=== PATIENT | female | born 1995 | race Caucasian/White ===

== ENCOUNTER 2016-09-12 14:08 | Emergency (ER) | payer OTHER ==
[2016-09-12 14:14] VITALS: BP 113/54; PULSE 59; TEMP 97.9; BMI 18.5
[2016-09-12] MEDS ORDERED: IBUPROFEN 400 MG TABLET (FP) PO ONE ×2 (15:06→15:10)
--- NOTE | 2016-09-12 15:14 | PDOC ---
History of Present Illness - General Chief Complaint: Vaginal Sxs Stated Complaint: LUMPS ON LOWER PELVIC REGION Time Seen by Provider: 09/12/16 14:23 History Source: Patient - History of Present Illness Timing/Duration: reports: getting worse Quality: reports: aching Abdominal Pain Onset Location: reports: other (groin) Past History - Past Medical History Allergies/Adverse Reactions: Allergies Allergy/AdvReac Type Severity Reaction Status Date / Time No Known Allergies Allergy Verified 09/12/16 14:14 Home Medications: Ambulatory Orders Doxycycline Hyclate 100 mg PO BID #28 capsule 09/12/16 Ibuprofen [Motrin -] 800 mg PO Q6H #30 tablet 09/12/16 Other medical history: NONE - Immunization History Immunization Up to Date: Yes - Psycho/Social/Smoking Cessation Hx Suicidal Ideation: No Smoking Status: No Smoking History: Current every day smoker Number of Cigarettes Smoked Daily: 4 Information on smoking cessation initiated: No Hx Alcohol Use: No Drug/Substance Use Hx: No Substance Use Type: None Review of Systems - Review of Systems Constitutional: No: Chills, Fever ABD/GI: No: Diarrhea, Nausea, Vomiting, Abdominal cramping : No: Burning, Dysuria, Frequency, Flank Pain, Hematuria, Pain, Lesions Musculoskeletal: No: Back Pain *Physical Exam - Vital Signs Last Vital Signs Temp Pulse Resp BP Pulse Ox 97.9 F 59 L 107 H 113/54 99 09/12/16 14:11 09/12/16 14:11 09/12/16 14:11 09/12/16 14:11 09/12/16 14:11 - Physical Exam General Appearance: Yes: Appropriately Dressed. No: Apparent Distress HEENT: positive: EOMI, Normal Voice. negative: Scleral Icterus (R), Scleral Icterus (L) Neck: positive: Supple Respiratory/Chest: negative: Respiratory Distress Female Pelvic Exam: positive: normal external exam, adnexal tenderness (minimal R adnexal tenderness). negative: CMT, discharge, lesions Gastrointestinal/Abdominal: positive: Normal Bowel Sounds, Soft. negative: Tender, Distended, Guarding Rectal Exam: positive: normal exam Lymphatic: positive: Adenopathy (enlarged tender lymphnodes to b/l inguinal area ) Musculoskeletal: negative: CVA Tenderness Extremity: positive: Normal Inspection Integumentary: positive: Dry, Warm Neurologic: positive: Fully Oriented, Alert, Normal Mood/Affect ED Treatment Course - LABORATORY CBC & Chemistry Diagram: 09/12/16 15:03 - RADIOLOGY Radiology Studies Ordered: Category Date Time Status PELVIS(OTHER) US [US] Stat Ultrasound 09/12/16 15:00 Ordered TRANSVAGINAL US PREG [US] Stat Ultrasound 09/12/16 15:00 Ordered Medical Decision Making - Medical Decision Making 09/12/16 15:10 21 yo F, no sig hx, sexually active w/ longtime male partner, here w/ pain and swelling to b/l inguinal area x 5 days. States sxs have gotten worse and exacerbated by walking. Also c/o ?decreased urinary output x 2 weeks but denies dysuria, hematuria, flank pain, abd pain, n/v/f/c. No vaginal discharge or lesions and denies h/o STDs See exam B/l inguinal lymphadenopathy Unclear source at this time No vag discharge or genital lesions No h/o STDs or HIV No rectal complaints No LE pain/skin changes Exam remarkable for minimal R adnexal tenderness and b/l enlarged tender inguinal lymphnodes -will r/o STDs including HIV and get US r/o acute pathology, i.e TOA, etc, ?PID , uti less likely as not known to cause lymphadenopathy 09/12/16 15:17 09/12/16 16:24 09/12/16 16:57 Labs including HIV and ultrasound negative, RPR and GC/Chlam pending. Case discussed with Dr. Jones in main ED, who agrees to treat for possible PID. Patient to follow-up with culture results and to return for worsening of symptoms *DC/Admit/Observation/Transfer Diagnosis at time of Disposition: Pelvic pain, Inguinal lymphadenopathy - Discharge Dispostion Disposition: HOME Condition at time of disposition: Improved - Prescriptions Prescriptions: Doxycycline Hyclate 100 mg PO BID #28 capsule Ibuprofen [Motrin -] 800 mg PO Q6H #30 tablet - Patient Instructions Printed Discharge Instructions: Pelvic Inflammatory Disease Additional Instructions: Take medications as directed and call [phone] for results Return to ED for worsening of symptoms
[2016-09-12 15:15] LABS: BASOPHIL 0.4 % (0-2.0); EOSINOPHIL 1.3 % (0-4.5); MCHC 33.6 g/dl (32.0-36.0); MEAN PLT VOLUME 9.2 fl (7.5-11.1); NEUTROPHILS 72.1 % (42.8-82.8); PLATELET COUNT 172 K/MM3 (134-434); RDW 13.1 % (11.6-15.6)
[2016-09-12 15:31] LABS: URINE APPEARANCE CLEAR; URINE BILIRUBIN NEGATIVE (NEGATIVE); URINE BLOOD NEGATIVE (NEGATIVE); URINE COLOR YELLOW; URINE GLUCOSE (UA) NEGATIVE (NEGATIVE); URINE KETONE TRACE (NEGATIVE); URINE LEUK ESTERASE NEGATIVE (NEGATIVE); URINE NITRITE NEGATIVE (NEGATIVE); URINE PROTEIN NEGATIVE (NEGATIVE); URINE UROBILINOGEN NEGATIVE E.U./dl (0.2-1.0)
[2016-09-12 16:07] LABS: HIV 1 & 2 AB NEGATIVE; HIV 1 AGp24 NEGATIVE
[2016-09-12] MEDS ORDERED: AZITHROMYCIN 1 GM PACKET ONE (16:57)
[2016-09-12] MEDS ORDERED: AZITHROMYCIN 1 GM PACKET PO ONE (16:57)
[2016-09-15 08:49] LABS: ALBUMIN 3.8 g/dl (3.4-5.0); ANION GAP 7 (8-16); BILIRUBIN,TOTAL 0.3 mg/dL (0.2-1.0); CALCIUM 8.9 mg/dL (8.5-10.1); CO2 27 mmol/L (21-32); CREATININE 0.7 mg/dL (0.55-1.02); GLUCOSE,RANDOM 66 mg/dL (74-106); SGOT/AST 11 U/L (15-37); SGPT/ALT 14 U/L (12-78); TOT PROT 6.6 g/dl (6.4-8.2)
[2016-09-15 08:50] LABS: ALK PHOS 70 U/L (45-117)
== END 2016-09-12 17:17 | disposition home or self-care (01) ==
LOC: JERFT 14:08
DX: R59.0 Localized enlarged lymph nodes (principal); F17.210 Nicotine dependence, cigarettes, uncomplicated
CPT/HCPCS: 36415; 76817-TC; 76856-TC; 80053; 81003; 84703; 85025; 86593; 87389; 99281-25

== ENCOUNTER 2017-09-13 05:09 | Emergency (ER) | payer OTHER ==
[2017-09-13 05:38] VITALS: BMI 17.7
--- NOTE | 2017-09-13 05:50 | PDOC ---
History of Present Illness - General Chief Complaint: Pain Stated Complaint: ABD PAIN - History of Present Illness Initial Comments: Pt is a 22yo sexually active F w/ PMHx of ectopic presents w/ 5 days of lower abdominal pain and vaginal bleeding. She states the pain is sharp, started suddenly, located infrabdominally, bilateral but L worse than R. The pain radiates to the back, not relieved w/ PO pain meds. She presented to her OBGYN (Dr Adams) office, who told her everything was fine. She subsequently was seen at [facility] ER, workup was unremarkable (see below). She was discharged w/ Tylenol, OCP, and antibiotics. The bleeding is unlike her normal period, she is passing numerous clots. Called [facility] ER to obtain workup from 09/09 - Labwork was done, normal CBC/ CMP, H/H 12.2/36.1, Urine negative, UA shows large blood, Transvaginal U/S - no evidence of pelvic abnormality, uterine endometrium appears unremarkable. Called Dr Adams's office - Workup showed bHCG <1, U/S showed normal uterus, endometrium, ovaries, follicles. Cervical and bimanual exam was performed, wnl. Assessment was chronic PID. She has been on doxycycline 100mg BID x 7 days. She was prescribed OCPs to help the abnormal uterine bleeding. Past History - Past Medical History Allergies/Adverse Reactions: Allergies Allergy/AdvReac Type Severity Reaction Status Date / Time No Known Allergies Allergy Verified 09/13/17 05:23 Home Medications: Ambulatory Orders Acetaminophen [Mapap] 325 mg PO DAILY 09/13/17 Docusate Sodium [Colace -] 100 mg PO BID 09/13/17 Ferrous Sulfate [Feosol] 325 mg PO DAILY 09/13/17 Norethindrone-E.estradiol-Iron [Junel Fe 1 mg-20 Mcg Tablet] 1 each PO DAILY - Immunization History Immunization Up to Date: Yes - Suicide/Smoking/Psychosocial Hx Smoking Status: No Smoking History: Current every day smoker Have you smoked in the past 12 months: Yes Number of Cigarettes Smoked Daily: 5 Information on smoking cessation initiated: No Hx Alcohol Use: No Drug/Substance Use Hx: No Substance Use Type: None *Physical Exam - Vital Signs Last Vital Signs Temp Pulse Resp BP Pulse Ox 97.7 F 77 18 113/78 100 09/13/17 05:22 09/13/17 05:22 09/13/17 05:22 09/13/17 05:22 09/13/17 05:22 - Physical Exam Comments: GEN: AAOx3, Minimal distress, lying in bed HEENT: PERRLA, EOMi CV: S1, S2, RRR LUNG: CTABL ABD: Soft, mild tenderness to palpation bilateral infrabdominally MSK: No edema, no erythema NEURO: CN 2-12 intact ED Treatment Course - LABORATORY CBC & Chemistry Diagram: 09/13/17 06:17 Medical Decision Making - Medical Decision Making 22yo F presents w/ lower abdominal pain and vaginal bleeding for 5 days. Workup done recently at [facility]'s ER and Dr Adams's office show no , normal cervical/bimanual exam, normal pelvic sono. Patient is sexually active, does not use protection. Likely diagnosis from OBGYN office is chronic PID w/ active menstruation. Pt has already been prescribed Doxy 100BID x 7 days. Pt understands she needs to followup with Dr. Adams at his office today. Will give Tylenol 650mg PO x1 for pain. Will obtain CBC, Coags to ensure no anemia from bleeding. If pain improves, likely dc. *DC/Admit/Observation/Transfer Diagnosis at time of Disposition: Pelvic inflammatory disease (PID) - Referrals Referrals: Joshua Adams MD [Staff Physician] - 24 hours Floyd Nagel MD [Primary Care Provider] - 1 week - Patient Instructions - Post Discharge Activity
[2017-09-13] MEDS ORDERED: ACETAMINOPHEN 325 MG TABLET (FP) PO ONE (06:31)
[2017-09-13 06:44] LABS: HEMATOCRIT 39.9 % (32.4-45.2); HEMOGLOBIN 13.4 GM/dL (10.7-15.3); MCHC 33.6 g/dl (32.0-36.0); MEAN CELL VOLUME 95.3 fl (80-96); MEAN PLT VOLUME 9.3 fl (7.5-11.1); PLATELET COUNT 222 K/MM3 (134-434); RBC 4.18 M/mm3 (3.60-5.2); RDW 13.1 % (11.6-15.6); WHITE BLOOD COUNT 8.5 K/mm3 (4.0-10.0)
[2017-09-13] MEDS ORDERED: ACETAMINOPHEN 325 MG TABLET (FP) ONE (06:49)
--- NOTE | 2017-09-13 07:07 | PDOC ---
Attending Attestation - Resident Resident Name: Chester Lin - ED Attending Attestation I have performed the following: I have examined & evaluated the patient, The case was reviewed & discussed with the resident, I agree w/resident's findings & plan, Exceptions are as noted - HPI HPI: 09/13/17 07:05 22yoF w/ menorrhagia and uterine cramping x 1 week. Has been to multiple ERs and her OB's office with multiple w/u for same. Pt states her symptoms are unchanged. No e/o symptommatic anemia. AF, VSS no pallor RRR CTABL soft NTND pelvic examination deferred. 22yoF w/ menorrhagia. - CBC - case discussed w/ her [facility]AN, cleared for DC to outpatient [facility] f/u - Physicial Exam PE: 09/13/17 07:06 see above - Medical Decision Making 09/13/17 07:06 see above
--- NOTE | 2017-09-13 07:20 | PDOC ---
*Physical Exam - Vital Signs Last Vital Signs Temp Pulse Resp BP Pulse Ox 97.7 F 77 18 113/78 100 09/13/17 05:22 09/13/17 05:22 09/13/17 05:22 09/13/17 05:22 09/13/17 05:22 - Physical Exam Comments: 09/13/17 07:27 GENERAL: Awake, alert, and fully oriented, in no acute distress HEAD: No signs of trauma, normocephalic, atraumatic EYES: PERRLA, EOMI, sclera anicteric, conjunctiva clear ENT: Hearing grossly normal, nares patent, oropharynx clear without exudates. Moist mucosa NECK: Normal ROM, no JVD, or masses LUNGS: No distress, speaks full sentences, clear to auscultation bilaterally HEART: Regular rate and rhythm, normal S1 and S2, no murmurs, rubs or gallops, peripheral pulses normal and equal bilaterally. ABDOMEN: Soft,lower abdominal ttp, normoactive bowel sounds. No guarding, no rebound. No masses EXTREMITIES : Normal inspection, Normal range of motion, no edema. No clubbing or cyanosis. SKIN: Warm, Dry, normal turgor, no rashes or lesions noted. ED Treatment Course - LABORATORY CBC & Chemistry Diagram: 09/13/17 06:17 - ADDITIONAL ORDERS Additional order review: 09/13/17 06:17 RBC 4.18 MCV 95.3 MCHC 33.6 RDW 13.1 MPV 9.3 - Medications Given in the ED: ED Medications Discontinued Medications Generic Name Dose Route Start Last Admin Trade Name Freq PRN Reason Stop Dose Admin Acetaminophen 650 mg 09/13/17 06:31 09/13/17 06:51 Tylenol - PO 09/13/17 06:32 650 mg ONCE ONE Administration Medical Decision Making - Medical Decision Making 09/13/17 07:14 22 yo F with h/o of ectopic who presents w/ 5 days of sharp, L>R, lower abdominal pain and vaginal bleeding/clotting. Seen by OBGYN (Dr Adams) and recently at [place] ER with negative workup. Received handoff from Dr. Lin , who called [facility] ER to obtain workup from 09/09 - Labwork was done, normal CBC/CMP, H/H 12.2/36.1, Urine negative, UA shows large blood, Transvaginal U/S - no evidence of pelvic abnormality, uterine endometrium appears unremarkable. Dr Adams's office - Workup showed bHCG <1, U/S showed normal uterus, endometrium, ovaries, follicles. Assessment was chronic PID. She has been on doxycycline 100mg BID x 7 days and was prescribed OCPs to help control uterine bleeding. ED Course: Tylenol 650 mg Patient has been to told to f/u with Dr. Servin outpatient. Pain control and reassess. 09/13/17 09:13 Patient pain controlled and stable for d/c with return precautions, Patient advised to f/u with Dr. Servni. *DC/Admit/Observation/Transfer Diagnosis at time of Disposition: Pelvic inflammatory disease (PID) - Discharge Dispostion Condition at time of disposition: Stable Admit: No - Referrals Referrals: Joshua Adams MD [Staff Physician] - 24 hours Floyd Nagel MD [Primary Care Provider] - 1 week - Patient Instructions Printed Discharge Instructions: DI for Pelvic Inflammatory Disease Additional Instructions: Please return to the emergency department with any new or worsening symptoms or concerns. Please follow up with Dr. Servin within the next 1-3 days. - Post Discharge Activity - Attestations Physician Attestion: 09/13/17 07:23 I attest to the information provided in this note.
[2017-09-13 07:22] LABS: INR 0.99 (0.82-1.09); PROTHROMBIN TIME (PATIENT) 11.2 SEC (9.98-11.88)
[2017-09-13 07:24] LABS: ACTIVATED PTT 32.1 SECONDS (26.9-34.4)
[2017-09-13 07:44] VITALS: BP 121/68; PULSE 71; TEMP 98.1
== END 2017-09-13 09:15 | disposition home or self-care (01) ==
LOC: JER 05:09
DX: N73.8 Other specified female pelvic inflammatory diseases (principal)
CPT/HCPCS: 36415; 85027; 85610; 85730; 99282-25

== ENCOUNTER 2020-08-15 00:39 | Emergency (ER) | payer OTHER ==
[2020-08-15 01:32] VITALS: BP 109/69; PULSE 65; TEMP 98.6; BMI 18.4
[2020-08-15 01:44] LABS: BASO % 0.6 % (0-2.0); EOS % 1.1 % (0-4.5); HEMATOCRIT 35.1 % (32.4-45.2); LYMPH % 30.6 % (8-40); MCH 32.5 pg (25.7-33.7); MEAN CELL VOLUME 95.6 fl (80-96); MEAN PLT VOLUME 9.5 fl (7.5-11.1); MONO % 10.4 % (3.8-10.2); NEUT % 57.3 % (42.8-82.8); PLATELET COUNT 219 K/MM3 (134-434); RBC 3.68 M/mm3 (3.60-5.2); RDW 12.6 % (11.6-15.6)
[2020-08-15 01:56] LABS: INR 1.02 (0.83-1.09); PROTHROMBIN TIME (PATIENT) 12.5 SEC (9.7-13.0)
[2020-08-15 01:59] LABS: ACTIVATED PTT 33.4 SECONDS (25.2-36.5)
[2020-08-15 02:07] LABS: ALBUMIN 3.8 g/dl (3.4-5.0); CALCIUM 8.6 mg/dL (8.5-10.1)
[2020-08-15 02:08] LABS: BLOOD UREA NITROGEN 13.3 mg/dL (7-18)
[2020-08-15 02:10] LABS: CREATININE 0.7 mg/dL (0.55-1.3)
[2020-08-15 02:12] LABS: BILIRUBIN,TOTAL 0.2 mg/dL (0.2-1); TOT PROT 6.5 g/dl (6.4-8.2)
== END 2020-08-15 03:40 | disposition home or self-care (01) ==
LOC: JER 00:39
DX: O20.0 Threatened abortion (principal); N93.9 Abnormal uterine and vaginal bleeding, unspecified; O41.8X10 Other specified disorders of amniotic fluid and membranes, first trimester, not applicable or unspecified; Z3A.01 Less than 8 weeks gestation of pregnancy
CPT/HCPCS: 36415; 76817-TC; 80053; 84702; 85025; 85610; 85730; 86850; 86900; 86901; 99284-25

== ENCOUNTER 2020-08-17 16:04 | Emergency (ER) | payer OTHER ==
[2020-08-17 16:08] VITALS: BP 127/82; PULSE 90; TEMP 98; BMI 18.4
== END 2020-08-17 18:51 | disposition home or self-care (01) ==
LOC: JER 16:04 → SUPCPDRO 16:04 → JER 18:51
DX: O03.9 Complete or unspecified spontaneous abortion without complication (principal)
CPT/HCPCS: 36415; 76817-TC; 84702; 93005; 93010; 99284-25

== ENCOUNTER 2022-06-30 20:17 | Emergency (ER) | payer OTHER ==
[2022-06-30 20:22] VITALS: BP 115/74; PULSE 82; RESP 18; TEMP 98; BMI 17.5
[2022-06-30 22:37] LABS: HEMATOCRIT 37.4 % (32.4-45.2); HEMOGLOBIN 12.8 GM/dL (10.7-15.3); MCH 32.9 pg (25.7-33.7); MCHC 34.3 g/dl (32.0-36.0); MEAN CELL VOLUME 95.9 fl (80-96); MEAN PLT VOLUME 8.3 fl (7.5-11.1); PLATELET COUNT 271 10^3/uL (134-434); RDW 12.7 % (11.6-15.6); WHITE BLOOD COUNT 9.5 K/mm3 (4.0-10.0)
[2022-06-30 22:53] LABS: ALBUMIN 3.8 g/dl (3.4-5.0); CALCIUM 8.9 mg/dL (8.5-10.1)
[2022-06-30 22:54] LABS: BLOOD UREA NITROGEN 15.3 mg/dL (7-18)
[2022-06-30 22:56] LABS: CREATININE 0.7 mg/dL (0.55-1.3)
[2022-06-30 22:58] LABS: BILIRUBIN,TOTAL 0.2 mg/dL (0.2-1); TOT PROT 6.6 g/dl (6.4-8.2)
== END 2022-07-01 00:06 | disposition left against medical advice (07) ==
LOC: JERFT 20:17
DX: O20.0 Threatened abortion (principal)
CPT/HCPCS: 36415; 80053; 84702; 85027; 99283-25

== ENCOUNTER 2022-09-22 07:46 | Emergency (ER) | payer OTHER ==
[2022-09-22 07:58] VITALS: BP 114/72; PULSE 91; RESP 20; TEMP 98.2; BMI 16.0
[2022-09-22] MEDS ORDERED: IBUPROFEN 600 MG TABLET (FP) PO ONE ×2 (08:36→08:47)
== END 2022-09-22 10:18 | disposition home or self-care (01) ==
LOC: JER 07:46
DX: S22.31XA Fracture of one rib, right side, initial encounter for closed fracture (principal); Y04.8XXA Assault by other bodily force, initial encounter
CPT/HCPCS: 71046-TC-FY; 99283-25

== ENCOUNTER 2023-01-14 08:14 | Emergency (ER) | payer OTHER ==
[2023-01-14 08:18] VITALS: BP 93/53; PULSE 73; RESP 16; TEMP 98.2; BMI 17.5
[2023-01-14] MEDS ORDERED: ACETAMINOPHEN 1000 MG/100 ML BAG IVPB ONE (08:52)
[2023-01-14] MEDS ORDERED: ONDANSETRON 4 MG/2 ML VIAL IVPUSH ONE (08:52)
[2023-01-14] MEDS ORDERED: FAMOTIDINE 20 MG/50 ML IVPB 20 MG/50 ML MG IVPB ONE ×2 (08:52→08:58)
[2023-01-14] MEDS ORDERED: SODIUM CHLORIDE 0.9% 500 ML INFUS.BAG IV ONE (08:52)
[2023-01-14] MEDS ORDERED: ACETAMINOPHEN INJECTION 100 ML IVPB ONE (08:58)
[2023-01-14] MEDS ORDERED: ONDANSETRON 4 MG/2 ML VIAL ONE (08:58)
[2023-01-14 09:42] LABS: URINE APPEARANCE CLOUDY; URINE BILIRUBIN NEGATIVE (NEGATIVE); URINE COLOR YELLOW; URINE GLUCOSE (UA) NEGATIVE (NEGATIVE); URINE KETONE NEGATIVE (NEGATIVE); URINE LEUK ESTERASE NEGATIVE (NEGATIVE); URINE NITRITE NEGATIVE (NEGATIVE); URINE PROTEIN NEGATIVE (NEGATIVE)
[2023-01-14 09:43] LABS: BASO % 0.4 % (0-2.0); EOS % 0.3 % (0-4.5); HEMATOCRIT 31.5 % (32.4-45.2); HEMOGLOBIN 11.3 GM/dL (10.7-15.3); LYMPH % 14.7 % (8-40); MCH 33.1 pg (25.7-33.7); MCHC 35.8 g/dl (32.0-36.0); MEAN CELL VOLUME 92.6 fl (80-96); MEAN PLT VOLUME 9.1 fl (7.5-11.1); MONO % 6.2 % (3.8-10.2); NEUT % 78.4 % (42.8-82.8); PLATELET COUNT 215 10^3/uL (134-434); RDW 12.9 % (11.6-15.6); WHITE BLOOD COUNT 9.2 K/mm3 (4.0-10.0)
[2023-01-14 10:00] LABS: POTASSIUM 4.2 mmol/L (3.5-5.1)
[2023-01-14 10:02] LABS: CALCIUM 8.6 mg/dL (8.5-10.1)
[2023-01-14 10:03] LABS: BLOOD UREA NITROGEN 9.8 mg/dL (7-18); MAGNESIUM 1.6 mg/dL (1.8-2.4)
[2023-01-14 10:05] LABS: CREATININE 0.5 mg/dL (0.55-1.3)
[2023-01-14 10:07] LABS: BILIRUBIN,TOTAL 0.2 mg/dL (0.2-1)
== END 2023-01-14 12:15 | disposition home or self-care (01) ==
LOC: JER 08:14
PROC: 3E033GC Introduction of Other Therapeutic Substance into Peripheral Vein, Percutaneous Approach (ICD-10-PCS; principal; 2023-01-14)
PROC: 3E033NZ Introduction of Analgesics, Hypnotics, Sedatives into Peripheral Vein, Percutaneous Approach (ICD-10-PCS; 2023-01-14)
PROC: 3E033GC Introduction of Other Therapeutic Substance into Peripheral Vein, Percutaneous Approach (ICD-10-PCS; 2023-01-14)
DX: O26.891 Other specified pregnancy related conditions, first trimester (principal); R10.13 Epigastric pain; O21.9 Vomiting of pregnancy, unspecified; M54.50 Low back pain, unspecified; Z3A.08 8 weeks gestation of pregnancy
CPT/HCPCS: 36415; 76817-TC; 80053; 81003; 83690; 83735; 84702; 85025; 86850; 86900; 86901; 87086; 99284-25

== ENCOUNTER 2024-10-12 18:00 | Emergency (ER) | payer OTHER ==
[2024-10-12 18:14] VITALS: BP 143/50; PULSE 91; RESP 18; TEMP 98.8; BMI 15.5
[2024-10-12] MEDS ORDERED: ACETAMINOPHEN 325 MG TABLET (FP) ONE (19:22)
[2024-10-12] MEDS: ACETAMINOPHEN 500 MG TABLET (FP) PO ONE (19:24)
== END 2024-10-12 19:29 | disposition home or self-care (01) ==
LOC: JER 18:00 → JERFT 18:00
DX: J34.89 Other specified disorders of nose and nasal sinuses (principal); M79.10 Myalgia, unspecified site; R11.10 Vomiting, unspecified; R19.7 Diarrhea, unspecified; J06.9 Acute upper respiratory infection, unspecified; Z20.822 Contact with and (suspected) exposure to COVID-19
CPT/HCPCS: 0241U-QW; 84703; 99283-25